=== PATIENT | male | born 1960 | race Two or more races ===

== ENCOUNTER 2018-11-30 05:25 | Inpatient (IN) | payer OTHER ==
[2018-11-30] VITALS (10 sets, daily range): BP systolic 106–132; BP diastolic 63–85
[~2018-11-30] VITALS: Ht 172.7 cm; Wt 109.8 kg
[2018-11-30] MEDS ORDERED: METOCLOPRAMIDE HCL 10 MG/2 ML VIAL ONE ×2 (06:09→06:34)
[2018-11-30] MEDS ORDERED: oxyCODONE HCL SR 10MG TAB.SR.12H PO ONE (06:09)
[2018-11-30] MEDS ORDERED: ACETAMINOPHEN ES 500 MG TABLET ONE (06:09)
[2018-11-30] MEDS ORDERED: CELECOXIB 100 MG CAPSULE ONE (06:09)
[2018-11-30] MEDS ORDERED: ANESTHESIA TRAY IN PYXIS 1 EA TRAY MC ONE (06:29)
[2018-11-30] MEDS ORDERED: MIDAZOLAM HCL 2 MG/2ML VIAL ONE (06:33)
[2018-11-30] MEDS ORDERED: FENTANYL PF 250MCG/5ML AMPUL ONE (06:33)
[2018-11-30] MEDS ORDERED: FAMOTIDINE/PF INJ 20 MG/2 ML VIAL IV ONE (06:34)
[2018-11-30] MEDS ORDERED: KETOROLAC TROMETHAMINE INJ 30 MG/ML VIAL ONE ×2 (06:53→10:05)
[2018-11-30] MEDS ORDERED: MORPHINE SULFATE INJ 4 MG/ML DISP.SYRIN ONE (06:53)
[2018-11-30] MEDS ORDERED: BUPIVACAINE MPF 0.5% W/EPI INJ 30 ML VIAL ONE (06:53)
[2018-11-30] MEDS ORDERED: TRANEXAMIC ACID 1,500 MG in SODIUM CHLORIDE IRRIG SOLUTION 85 ML IR ONE (07:00)
[2018-11-30] MEDS ORDERED: BUPIVACAINE 0.75% DEXT-PF 2 ML AMPUL ONE (07:01)
[2018-11-30] MEDS ORDERED: BUPIVACAINE 0.25% 75 MG/30 ML VIAL ONE (07:05)
[2018-11-30] MEDS ORDERED: oxyCODONE IR immediate release 5 MG ONE (10:03)
[2018-11-30] MEDS ORDERED: ASPIRIN 600 MG/SUPP.RECT RC ONE (10:30)
[2018-11-30] MEDS ORDERED: HYDROMORPHONE 1 MG/1 ML DISP.SYRIN IV PRN (12:00)
[2018-11-30] MEDS ORDERED: BISACODYL SUPP (10 MG) 10 MG/SUPP.RECT SUPP.RECT RC PRN ×2 (12:00→16:30)
[2018-11-30] MEDS ORDERED: DOCUSATE SODIUM 100 MG CAPSULE PO PRN (12:00)
[2018-11-30] MEDS ORDERED: ZOLPIDEM TARTRATE 5 MG TABLET PO PRN (12:00)
[2018-11-30] MEDS ORDERED: ACETAMINOPHEN 325 MG TABLET PO PRN (12:00)
--- NOTE | 2018-11-30 12:48 | NUR ---
MS RN ADMITTING NOTES PATIENT ADMITTED TO UNIT VIA BED FROM SURGERY AT 1140 S/P RIGHT TOTAL KNEE ARTHROPLASTY BY CORNELIUS ABRAHAM ACCOMPANIED BY O.R. NURSE EFRAIN. A/O X 3-4. MONTENEGRIN SPEAKING WITH NO C/O PAIN OR DISCOMFORTS DURING ADMISSION. UNIT ORIENTATION GIVEN TO PT AND VERBALIZED UNDERSTANDING. ON 02 VIA N/C AT 2LPM, TOLERATING WELL WITH NO SOB NOTED. PT'S PRESENT AT BEDSIDE. V/S TAKEN AND RECORDED. BODY ASSESSMENT DONE. BOTH LUNGS CLEAR ON AUSCULTATION. ABDOMEN SOFT, NON-TENDER AND NON DISTENDED. IV ACCESS INTACT AND PATENT TO LEFT WRIST G#18. PT NOTED WITH DRESSING TO RIGHT KNEE CDI WRAP WITH LARRY BANDAGE WITH IMMOBILIZER, MD ONLY TO CHANGE DRESSING. HE IS ABLE TO FEEL SENSATION TO RIGHT FOOT AND MOVE ALL HIS TOES. ALL MD ORDERS CARRIED OUT. SAFETY MEASURES INITIATED. BED PLACED ON LOW LOCKED POSITION WITH SR UP X2. CALL LIGHT PLACED WITHIN EASY REACH OF PT. SÁNCHEZ HARRELL MADE AWARE OF PT'S ADMISSION. WILL CONTINUE TO ASSESS AND MONITOR PT.
--- NOTE | 2018-11-30 12:51 | NUR ---
RN NOTES ASPIRIN 600MG SUPPOSITORY NOT GIVEN IN THE UNIT, PER O.R. NURSE EFRAIN, SHE GAVE THE ASPIRIN 600MG SUPPOSITORY IN THE RECOVERY ROOM BEFORE TRANSPORTING PT TO UNIT. WILL CONTINUE TO MONITOR.
[2018-11-30] MEDS: HYDROCODONE/APAP 5/325MG 1 EACH TABLET PO SCH ×3 (12:59→21:12)
[2018-11-30] MEDS: ONDANSETRON HCL/PF 4 MG/2 ML VIAL IVP SCH ×2 (12:59→18:30)
[2018-11-30] MEDS: IV 1/2NS 1000 ML 1,000 ML IV PRN (13:02)
[2018-11-30] MEDS ORDERED: GABA-534 PO (13:19)
[2018-11-30] MEDS ORDERED: SITA100T PO (13:19)
[2018-11-30] MEDS ORDERED: METF-442 PO (13:19)
[2018-11-30] MEDS ORDERED: LISI40TA4 PO (13:19)
[2018-11-30] MEDS ORDERED: ATOR40TA PO (13:19)
[2018-11-30] MEDS ORDERED: INSU100I26 SQ ×2 (13:19)
[2018-11-30] MEDS ORDERED: ASPI-1152 PO (13:19)
[2018-11-30] MEDS ORDERED: LORA10TA7 PO (13:19)
[2018-11-30] MEDS ORDERED: AMLO5TAB9 PO (13:19)
[2018-11-30] MEDS ORDERED: IBUP-1955 PO (13:19)
[2018-11-30] MEDS: ANCEF 1 GM/50 ML D5W IV SCH ×4 (15:45→23:15)
[2018-11-30] MEDS ORDERED: IV NS 0.9% 1,000 ML IV PRN (16:06)
[2018-11-30] MEDS: CELECOXIB 100 MG CAPSULE PO SCH (16:28)
[2018-11-30] MEDS ORDERED: ONDANSETRON HCL/PF 4 MG/2 ML VIAL IVP PRN (16:30)
[2018-11-30] MEDS ORDERED: HYDROCODONE/APAP 5/325MG 1 EACH TABLET PO PRN ×2 (16:30)
[2018-11-30] MEDS ORDERED: DOCUSATE SODIUM 250 MG CAPSULE PO PRN (16:30)
[2018-11-30] MEDS ORDERED: IBUPROFEN 600 MG TABLET PO PRN (16:30)
[2018-11-30] MEDS ORDERED: DEXTROSE 50%-WATER 50 ML DISP.SYRIN IV PRN (16:30)
[2018-11-30] MEDS: INSULIN REGULAR, HUMAN 100 UNIT/ML 3 ML VIAL SQ PRN (17:26)
[2018-11-30] MEDS: BLOOD SUGAR DIAGNOSTIC 1 EACH STRIP IN SCH ×2 (17:26→21:43)
--- NOTE | 2018-11-30 17:38 | NUR ---
RN NOTES PATIENT ABLE TO MOVE ALL RIGHT FOOT TOES WITH EASE. GOOD CIRCULATION NOTED AND WITH POSITIVE SENSATION WHEN TOUCH. WILL ENDORSE TO FUNCTIONAL ANALYST NURSE TO CONTINUE TO ASSESS AND MONITOR.
--- NOTE | 2018-11-30 17:47 | NUR ---
RN NOTES PHYSICAL EVALUATION DONE TODAY AND PT ABLE TO WALK WITH FWW. CPM APPLIED AND REMOVED AFTER 2HRS PER PT'S REQUEST. WILL ENDORSE TO FOOD ASSEMBLER NURSE TO RE-RUN CPM AGAIN TONIGHT. PT IS AWARE THAT CPM SHOULD BE USED 4-6 HRS A DAY. WILL CONTINUE TO MONITOR
[2018-11-30] MEDS: INSULIN GLARGINE, 100 UNIT/ML CARTRIDGE SQ SCH (18:00)
[2018-11-30] MEDS: KETOROLAC TROMETHAMINE INJ 30 MG/ML VIAL IV SCH (18:11)
--- NOTE | 2018-11-30 19:06 | NUR ---
MS RN CLOSING NOTES PATIENT AWAKE IN BED AND WATCHING TV. AT BEDSIDE. A/O X4. NEPALI SPEAKING. ON ROOM AIR, TOLERATING WELL WITH NO ACUTE RESPIRATORY DISTRESS NOTED. TAUGHT AND ENCOURAGED COUGHING AND DEEP BREATHING EXERCISES. IV ACCESS INTACT AND PATENT TO LEFT WRIST G#18, IVF OF 1/2 NS @ 75ML/HR INFUSING WELL, NO S/S OF INFILTRATIONS NOTED. DRESSING TO RIGHT KNEE CDI WRAP WITH LARRY BANDAGE WITH IMMOBILIZER, MD ONLY TO CHANGE DRESSING. HE IS ABLE TO FEEL SENSATION TO RIGHT FOOT AND MOVE ALL HIS TOES WITHOUT PROBLEM.. ALL NEEDS NAD CARE ATTENDED WELL. SAFETY MEASURES KEPT IN PLACE. BED IN LOW LOCKED POSITION WITH SR UP X2. CALL LIGHT PLACED WITHIN EASY REACH OF PT. WILL ENDORSE TO STRIP TANK TENDER NURSE FOR SANDRA Addendum: 11/30/18 at 1933 by KAVEH BORDEN RN ADDENDUM: LUU IN PLACE DRAINING CLEAR YELLOW URINE TO BEDSIDE DRAINAGE BAG. LUU CARE DONE. WILL CONTINUE TO MONITOR.
--- NOTE | 2018-11-30 19:20 | NUR ---
MS/RN NOTES RECEIVED PT. LYING IN BED. PT. IS AWAKE, ALERT AND ORIENTED X3. BREATHING EVEN AND UNLABORED ON ROOM AIR. NO SOB, RESPIRATORY DISTRESS OR COMPLAINTS OF PAIN NOTED AT THIS TIME. PT. WITH LEFT WRIST 18 GAUGE PERIPHERAL IV PRESENT, PATENT AND INTACT ADMINISTERING TO PT. IV 1/2 NS @ 75 ML/HR. PT. WITH LUU CATHETER PRESENT, PATENT AND INTACT DRAINING CLEAR YELLOW URINE. PT. IS POST OP RIGHT TOTAL KNEE ARTHROPLASTY 11/30/[address] DOMINGO. PT. WITH RIGHT KNEE POST OP DRESSING PRESENT, CLEAN, DRY AND INTACT. NO BLEEDING OR DRAINAGE NOTED. MD TO PERFORM FIRST DRESSING CHANGE. CIRCULATION , MOTION AND SENSATION CHECKED ON PT. RIGHT FOOT. PT. IS ABLE TO MOVE TOES AND FOOT WITHOUT PROBLEM. PT. MAINTAINS GOOD CIRCULATION AND SENSATION IN RIGHT FOOT. BED LOCKED AND IN LOWEST POSITION, SIDE RAILS UP X2, CALL LIGHT WITHIN REACH. PT. INSTRUCTED TO CALL FOR ASSISTANCE, PT. VERBALIZED UNDERSTANDING. WILL CONTINUE TO MONITOR.
[2018-11-30] MEDS: GABAPENTIN 300 MG CAPSULE PO SCH (21:12)
--- NOTE | 2018-11-30 22:40 | NUR ---
MS/RN NOTES PT. CIRCULATION CHECK DONE. PT. IS ABLE TO MOVE ALL TOES ON THE RIGHT FOOT. PATIENT CAPILLARY REFILL IS LESS THAN THREE SECONDS AND PATIENT MAINTAINS SENSATION IN RIGHT FOOT.
[2018-11-30] MEDS: ASPIRIN EC 325 MG TABLET.DR PO SCH (23:15)
[2018-12-01] MEDS: KETOROLAC TROMETHAMINE INJ 30 MG/ML VIAL IV SCH ×4 (00:15→17:36)
[2018-12-01] MEDS: ONDANSETRON HCL/PF 4 MG/2 ML VIAL IVP SCH ×2 (01:16→06:16)
[2018-12-01] MEDS: HYDROCODONE/APAP 5/325MG 1 EACH TABLET PO SCH ×6 (01:16→20:38)
[2018-12-01] MEDS ORDERED: KETOROLAC TROMETHAMINE INJ 30 MG/ML VIAL ONE (04:57)
[2018-12-01] MEDS: IV 1/2NS 1000 ML 1,000 ML IV PRN ×2 (06:11→17:03)
[2018-12-01] MEDS: BLOOD SUGAR DIAGNOSTIC 1 EACH STRIP IN SCH ×4 (06:30→22:09)
[2018-12-01 06:34] LABS: BASOPHILS % (AUTO) 0.5 % (0.0-2.0); EOSINOPHILS % (AUTO) 4.5 % (0.0-6.0); HEMATOCRIT 35 % (39-51); HEMOGLOBIN 11.7 g/dL (13.5-17.5); LYMPHOCYTES # (AUTO) 1.6 /CMM (0.8-4.8); LYMPHOCYTES % (AUTO) 18.5 % (20.0-44.0); MEAN CORPUSCULAR HGB CONC 34 g/dl (31.0-36.0); MEAN CORPUSCULAR VOLUME 93 fL (80-96); MONOCYTES # (AUTO) 0.8 /CMM (0.1-1.30); MONOCYTES % (AUTO) 9.5 % (2.0-12.0); NEUTROPHILS # (AUTO) 5.8 /CMM (1.8-8.9); PLATELET COUNT (AUTO) 264 /CMM (150-450); RED BLOOD CELL COUNT(AUTO) 3.72 MIL/uL (4.5-6.0); WHITE BLOOD COUNT (AUTO) 8.7 K/uL (4.3-11.0)
[2018-12-01 06:45] LABS: CALCIUM, SERUM 8.1 mg/dL (8.5-10.1); CREATININE 1.3 mg/dL (0.6-1.3); MAGNESIUM 1.9 mg/dL (1.8-2.4); PHOSPHORUS 4.3 mg/dL (2.5-4.9); POTASSIUM 4.9 mmol/L (3.5-5.1)
--- NOTE | 2018-12-01 06:50 | NUR ---
MS/RN NOTES PT. IS LYING IN BED RESTING. BREATHING EVEN AND UNLABORED ON ROOM AIR. NO SOB, RESPIRATORY DISTRESS OR COMPLAINTS OF PAIN NOTED AT THIS TIME. PT. WITH LEFT WRIST 18 GAUGE PERIPHERAL IV PRESENT, PATENT AND INTACT ADMINISTERING TO PT. IV 1/2 NS @ 75 ML/HR. PT. WITH LUU CATHETER PRESENT, PATENT AND INTACT DRAINING CLEAR YELLOW URINE. PT. WITH RIGHT KNEE POST OP DRESSING PRESENT, CLEAN, DRY AND INTACT. NO BLEEDING OR DRAINAGE NOTED. CIRCULATION , MOTION AND SENSATION CHECKED ON PT. RIGHT FOOT. PT. IS ABLE TO MOVE TOES AND FOOT. PT. MAINTAINS GOOD CIRCULATION AND SENSATION IN RIGHT FOOT. ALL PT. NEEDS MET. BED LOCKED AND IN LOWEST POSITION, SIDE RAILS UP X2, CALL LIGHT WITHIN REACH, WILL ENDORSE TO DAYSHIFT NURSE FOR CONTINUITY OF CARE.
--- NOTE | 2018-12-01 07:42 | NUR ---
RN OPENING NOTE PT WAS RECEIVED IN BED AT LOWEST AND LOCKED POSITION WITH SIDE RAILS UP X2, A/O X3-4 TAJIK SPEAKING, BREATHING IS EVEN AND UNLABORED, NO CURRENT COMPLAINTS OF PAIN, NOTED TO HAVE LUU IN PLACE, IV IS PATENT AND INTACT, DRESSING INTACT AND TO BE CHANGED BY MD, BLOOD SUGARS WERE STABLE THROUGHOUT THE NIGHT, SAFETY PRECAUTIONS IN PLACE, CALL LIGHT WITHIN REACH, WILL MONITOR ACCORDINGLY.
[2018-12-01 08:00] VITALS: BP 121/64
[2018-12-01 08:29] LABS: THYROID STIMULATING HORMONE 2.525 uIU/mL (0.358-3.74)
[2018-12-01] MEDS: INSULIN GLARGINE, 100 UNIT/ML CARTRIDGE SQ SCH ×2 (09:00→17:44)
[2018-12-01] MEDS: AMLODIPINE BESYLATE 5 MG TABLET PO SCH (09:06)
[2018-12-01] MEDS: CELECOXIB 100 MG CAPSULE PO SCH ×2 (09:06→16:12)
[2018-12-01] MEDS: LORATADINE 10 MG TABLET PO SCH (09:07)
[2018-12-01] MEDS: ATORVASTATIN 40 MG TABLET PO SCH (09:07)
[2018-12-01] MEDS: ASPIRIN EC 325 MG TABLET.DR PO SCH ×2 (09:07→16:12)
[2018-12-01] MEDS: LISINOPRIL (20MG) 20 MG TABLET PO SCH (09:08)
[2018-12-01] MEDS: LINAGLIPTIN 5 MG TABLET PO SCH (09:08)
--- NOTE | 2018-12-01 09:17 | NUR ---
RN NOTES WITHHELD INSULIN GLARGINE DUE TO PT BS BEING WNL THROUGHOUT THE NIGHT AND BLOOD SUGAR BEING 159 THIS AM, WILL AWAIT 1200 BS RESULT AND MONITOR ACCORDINGLY
--- NOTE | 2018-12-01 10:00 | NUR ---
RN NOTE PT ABLE TO AMBULATE WITH PHYSICAL THERAPY TODAY FOR 60 FEET, WILL MONITOR ACCORDINGLY
[2018-12-01] MEDS: INSULIN REGULAR, HUMAN 100 UNIT/ML 3 ML VIAL SQ PRN ×3 (12:00→23:21)
[2018-12-01 16:00] VITALS: BP 123/73
--- NOTE | 2018-12-01 17:45 | NUR ---
RN NOTES WITHHELD INSULIN GLARGINE DUE TO PT BS BEING STABLE AND UNDER CONTROL WITH REGULAR INSULIN. LATEST BLOOD SUGAR BEING 137 2 UNITS OF REGULAR INSULIN GIVEN, WILL MONITOR ACCORDINGLY
--- NOTE | 2018-12-01 18:39 | NUR ---
RN CLOSING NOTE PT IN BED AT LOWEST AND LOCKED POSITION WITH SIDE RAILS UP X2, A/O X 4, BREATHING EVEN AND UNLABORED, NO CURRENT COMPLAINTS OF PAIN, LUU IN PLACE, IV IS PATENT AND INTACT, SAFETY PRECAUTIONS IN PLACE, CALL LIGHT WITHIN REACH, WILL ENDORSE TO COURT REPORTER RN FOR SANDRA.
[2018-12-01 20:40] VITALS: BP 116/77
[2018-12-01] MEDS: GABAPENTIN 300 MG CAPSULE PO SCH (22:10)
[2018-12-02] MEDS: HYDROCODONE/APAP 5/325MG 1 EACH TABLET PO SCH ×5 (00:22→12:30)
[2018-12-02] MEDS: KETOROLAC TROMETHAMINE INJ 30 MG/ML VIAL IV SCH ×3 (00:22→12:39)
[2018-12-02] MEDS ORDERED: KETOROLAC TROMETHAMINE INJ 30 MG/ML VIAL ONE (06:13)
[2018-12-02] MEDS: BLOOD SUGAR DIAGNOSTIC 1 EACH STRIP IN SCH ×2 (06:26→12:21)
[2018-12-02] MEDS: IV 1/2NS 1000 ML 1,000 ML IV PRN (06:26)
[2018-12-02] MEDS: INSULIN REGULAR, HUMAN 100 UNIT/ML 3 ML VIAL SQ PRN (06:28)
--- NOTE | 2018-12-02 06:43 | NUR ---
MS RN NOTES AWAKE & RESPONSIVE. NOT IN ANY DISTRESS. NO SOB NOTED. DENIES ANY PAIN OR DISCOMFORT AT THIS TIME. WITH IVF INFUSING WELL. MONITORED ACCORDINGLY. CALL LIGHT WITHIN REACH. BED IN LOWEST POSITION. SR UP X 2 FOR SAFETY. WILL ENDORSE TO NEXT SHIFT.
--- NOTE | 2018-12-02 07:30 | NUR ---
RN OPENING NOTES RECEIVED PATIENT IN BED RESTING. A/OX4, ABLE TO MAKE NEEDS KNOWN. NOT IN ANY FORM OF DISTRESS, NO SOB. DENIED PAIN OR DISCOMFORT AT THIS TIME. IV ACCESS, INTACT AND PATENT. KEPT PATIENT SAFE AND COMFORTABLE. BED IN LOW/LOCKED POSITION SIDERAILS UPX2 CALL LIGHT IN REACH. WILL CONTINUE TO MONIOTR ACCORDINGLY
[2018-12-02 08:00] VITALS: BP 121/64
[2018-12-02 08:34] LABS: BASOPHILS % (AUTO) 0.4 % (0.0-2.0); EOSINOPHILS % (AUTO) 6.6 % (0.0-6.0); HEMATOCRIT 33 % (39-51); HEMOGLOBIN 11.2 g/dL (13.5-17.5); LYMPHOCYTES # (AUTO) 1.6 /CMM (0.8-4.8); LYMPHOCYTES % (AUTO) 17.4 % (20.0-44.0); MEAN CORPUSCULAR HGB CONC 34 g/dl (31.0-36.0); MEAN CORPUSCULAR VOLUME 93 fL (80-96); MONOCYTES # (AUTO) 0.8 /CMM (0.1-1.30); MONOCYTES % (AUTO) 8.9 % (2.0-12.0); NEUTROPHILS # (AUTO) 6.3 /CMM (1.8-8.9); NEUTROPHILS % (AUTO) 66.7 % (43.0-81.0); PLATELET COUNT (AUTO) 248 /CMM (150-450); RED BLOOD CELL COUNT(AUTO) 3.53 MIL/uL (4.5-6.0); WHITE BLOOD COUNT (AUTO) 9.4 K/uL (4.3-11.0)
[2018-12-02 08:43] LABS: CALCIUM, SERUM 8.2 mg/dL (8.5-10.1); MAGNESIUM 2.3 mg/dL (1.8-2.4); PHOSPHORUS 3.6 mg/dL (2.5-4.9); POTASSIUM 4.2 mmol/L (3.5-5.1)
[2018-12-02] MEDS: INSULIN GLARGINE, 100 UNIT/ML CARTRIDGE SQ SCH (09:00)
[2018-12-02] MEDS: ASPIRIN EC 325 MG TABLET.DR PO SCH (09:03)
[2018-12-02] MEDS: ATORVASTATIN 40 MG TABLET PO SCH (09:03)
[2018-12-02] MEDS: LORATADINE 10 MG TABLET PO SCH (09:03)
[2018-12-02 09:04] VITALS: BP 121/64
[2018-12-02] MEDS: LISINOPRIL (20MG) 20 MG TABLET PO SCH (09:04)
[2018-12-02] MEDS: AMLODIPINE BESYLATE 5 MG TABLET PO SCH (09:04)
[2018-12-02] MEDS: LINAGLIPTIN 5 MG TABLET PO SCH (09:04)
[2018-12-02] MEDS: CELECOXIB 100 MG CAPSULE PO SCH (09:05)
--- NOTE | 2018-12-02 12:00 | NUR ---
URINE COLLECTED, PICKED UP BY LAB
--- NOTE | 2018-12-02 12:29 | NUR ---
RN NOTES NORCO 5 GIVEN SCHEDULED AT 09, SCANNED MEDICATION BUT COMPUTER WAS SHUT OFF AND DIDNT SAVE. RE-SCANED NORCO LATE.
--- NOTE | 2018-12-02 13:00 | NUR ---
REMOVED LUU ORDERED. PATIENT TOLERATED WELL
[2018-12-02 13:15] LABS: APPEARANCE,URINE SL CLOUDY (CLEAR); BILIRUBIN,URINE NEGATIVE (NEGATIVE); BLOOD, URINE 3+ Ery/uL (NEGATIVE); COLOR,URINE YELLOW (YELLOW); KETONES,URINE NEGATIVE (NEGATIVE); LEUKOCYTE ESTERASE ,URINE NEGATIVE (NEGATIVE); NITRITE, URINE NEGATIVE (NEGATIVE); PH,URINE 5.5 (5.0-8.0); PROTEIN,URINE 1+ mg/dl (NEGATIVE); UGLUCOSE NEGATIVE (NEGATIVE); UROBILINOGEN,URINE 0.2 EU/dL (0.2)
[2018-12-02 13:23] LABS: BACTERIA,URINE None seen /HPF (None Seen); SQUAMOUS EPITHELIAL CELL,UR 0-2 /HPF (None Seen); WBC,URINE 0-2 /HPF (0-3)
[2018-12-02] MEDS ORDERED: ASPI-605 PO (13:41)
[2018-12-02] MEDS ORDERED: CELE200C PO (13:41)
[2018-12-02] MEDS ORDERED: HYDR-4384 PO (13:41)
--- NOTE | 2018-12-02 14:50 | NUR ---
CLEARED BY PHYSICAL THERAPY FOR DISCHARGE.
--- NOTE | 2018-12-02 16:30 | NUR ---
DISCHARGED PATIENT IN STABLE CONDITION, PICKED UP BY FAMILY, ACCOMPANIED BY PRIMARY NURSE TO THE LOBBY. DISCHARGE INSTRUCTIONS GIVEN, VERBALIZED UNDERSTANDING. DISCHARGED WITH HOMEHEALTH PER CASE MANAGEMENT. DC PAPERWORK AND PRESCRIPTIONS GIVEN ORDERED. ALL BELONGINGS RETURNED, FORM SIGNED. REMOVED IV ACCESS, NO BLEEDING, NO COMPLICATIONS. REMOVED NAMEBAND. MD TO CHANGE DRESSING ON SURGICAL INCISION ON RIGHT KNEE, TOOK PICTURE OF DRESSING, C/D/I ON DISCHARGE.
== END 2018-12-02 16:30 | disposition home health service (06) | DRG 470 ==
LOC: DS 05:25 → MEDSG2 10:55
PROVIDERS: ADMIT Registered Nurse; ATTEND Registered Nurse
PROC: 0SRC0J9 Replacement of Right Knee Joint with Synthetic Substitute, Cemented, Open Approach (ICD-10-PCS; principal; 2018-11-30)
DX: M17.11 Unilateral primary osteoarthritis, right knee (principal); E11.9 Type 2 diabetes mellitus without complications; E66.9 Obesity, unspecified; E78.5 Hyperlipidemia, unspecified; I10 Essential (primary) hypertension; Z68.36 Body mass index [BMI] 36.0-36.9, adult; Z71.3 Dietary counseling and surveillance; G47.9 Sleep disorder, unspecified; Z79.84 Long term (current) use of oral hypoglycemic drugs; Z79.4 Long term (current) use of insulin
CPT/HCPCS: 36415; 73560-TC; 80048-TC; 80061-TC; 81000-TC; 82962-TC; 83735-TC; 84100-TC; 84443-TC; 85025-TC; 86850-TC; 86921-TC; 87081-TC; 88305-TC; 88311-TC; 97110-TC; 97116-TC; 97530-TC; 97760-TC; A4217; A6402; C1713; G0378; J0690; J1815; J1885; J2250; J2270; J2405; J2704; J2765; J3010; J3490; J7060; J7120; L1830